=== PATIENT | male | born 1935 | race African-American/Black ===

== ENCOUNTER → 2016-09-26 | Outpatient (CLI) | payer OTHER ==
--- NOTE | 2016-09-26 12:56 | DIAGNOSTIC IMAGING REPORT ---
PROCEDURE: XR SHOULDER 2 OR MORE VW-LEFT INDICATION: LEFT SHOULDER PX,UNSPECIFIED CHRONICITY TECHNIQUE: Three views. COMPARISON: None. FINDINGS: Mild AC and glenohumeral joint degenerative changes. 6.0 mm soft tissue calcification. No fracture dislocation. IMPRESSION: 1. Calcific tendonitis 2. 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
== END ==
LOC: XR SRH 11:42
DX: M75.32 Calcific tendinitis of left shoulder (principal); M19.012 Primary osteoarthritis, left shoulder